=== PATIENT | male | born 1935 | race Caucasian/White ===

== ENCOUNTER 2024-08-06 12:05 | Emergency (ER) | payer MEDICARE, SELFPAY ==
[2024-08-06 12:07] VITALS: BP 146/60; PULSE 60; RESP 20; TEMP 36.9; O2SAT 97
[2024-08-06 12:08] VITALS: BMI 31.4
[2024-08-06 12:26] VITALS: PULSE 80; O2SAT 99; BMI 18.7
--- NOTE | 2024-08-06 12:39 | PC.NURSE ---
PT BIBA FROM HOME FOR GROUND LEVEL FALL. PER PT HE TRIPPED OVER HIS CAT. PT WAS SEEN YESTERDAY DUE TO DIZZINESS FROM NEW MUSCLE RELAXER. PER PT THE NEW MED CAUSES DIZZINESS. PT IS GCS 15 AT TIME OF ASSESSMENT, ABLE TO ANSWER QUESTIONS APPROPRIATELY. PTS NEIGHBOR CALLED EMS AFTER SHE HEARD LOUD THUMP. PT DENIES ANY BLOOD THINNERS OR LOC, BUT REPORTS HAVING 10/10 LOWER BACK PAIN. VSS ON TELE, CALL [facility] IN [place].
--- NOTE | 2024-08-06 12:56 | XR_ITS ---
Examination: CT brain head without contrast. 2-D sagittal coronal reconstructions Date and time of exam:August 06, 2024 at 1342 hours INDICATIONS: Patient fell today with injury to the head, patient is anticoagulated CTDI: vol (mGy):50.1 DLP: (mGycm):1042 Technique: Multiple CT axial sections of the brain have been obtained, 5 mm slice thickness. Contrast has not been administered. 2-D sagittal, coronal reconstructions have been obtained Low dose protocols were performed. One or more of the following dose reduction techniques were used; automated exposure control, adjustment of the mA and/or KV according to patient size, use of iterative reconstruction technique. Findings: No significant ventricular enlargement. Intra-axial or extra-axial hemorrhage density is not seen. No mass effect or midline shift Basal cisterns are not remarkable. Fourth ventricle is midline. Cranial vault intact. Impression: Negative for acute hemorrhage, mass effect or midline shift
--- NOTE | 2024-08-06 12:56 | XR_ITS ---
Examination: CT cervical spine without contrast 2-D sagittal reconstructions 2-D coronal reconstructions 3-D reconstructions. Exam date and time:August 06, 2024 1342 hours INDICATIONS: Patient fell today with into the neck, neck pain CTDI:vol (mGy) 8.55 DLP: (mGycm) 184 Technique: Multiple 2 mm axial sections of the cervical spine have been obtained. The coronal and sagittal reconstructions have been obtained. 3-D reconstructions have been obtained. Low dose protocols were performed. One or more of the following dose reduction techniques were used; automated exposure control, adjustment of the mA and/or KV according to patient size, use of iterative reconstruction technique. Findings: Axial sections demonstrate intact base of the skull. C1 exhibit satisfactory relationship to the odontoid. No acute cervical vertebral body fracture seen. Alignment posterior spinous processes satisfactory. Impression: No acute cervical fracture.
--- NOTE | 2024-08-06 13:19 | EDNOTE_ITS ---
ED Fall Injury RME/HPI General Chief Complaint: Fall Stated Complaint: BACK PAIN Time Seen by Provider: 08/06/24 12:44 Arrival date/time: 08/06/24 12:05 Limitations: no limitations RME / HPI RME / HPI Narrative: 88 year old male presents to the ED BIBA from home for evaluation after GLF occurring this morning. States he tripped over his cat while walking which caused him to fall backwards, hitting the back of his head on the space heater. Reports since fall has had pain to his neck that is worse with movements. Otherwise denies losing consciousness. No other injuries or complaints reported. Related Data Home Medications ?Medication ?Instructions ?Recorded ?Confirmed metoclopramide HCl 5 mg tablet 5 mg PO QDAY #0 tabs 02/01/15 08/06/23 (Reglan) atorvastatin 40 mg tablet 40 mg PO QDAY 05/23/23 08/06/23 gabapentin 300 mg capsule 300 mg PO BID 05/23/23 08/06/23 levothyroxine 75 mcg tablet 75 mcg PO QDAY 05/23/23 08/06/23 meclizine 25 mg tablet 25 mg PO TID PRN Dizziness Or 05/23/23 08/06/23 Vertigo tamsulosin 0.4 mg capsule 0.4 mg PO DAILY 08/03/23 08/06/23 Previous Rx's ?Medication ?Instructions ?Recorded clopidogrel 75 mg tablet (Plavix) 75 mg PO QDAY Blood Thinner 30 08/16/22 days #30 tabs Allergies Allergy/AdvReac Type Severity Reaction Status Date / Time No Known Allergies Allergy Verified 08/06/24 12:31 Review of Systems Review of Systems Narrative Review of Systems: GEN: No fever, no chills, no weight loss EYES: No discharge, no visual changes, no pain HEENT: No ear pain, no congestion, no sore throat PULM: No shortness of breath, no cough, no congestion CV: No chest pain, no dyspnea on exertion, no palpitations GI: No nausea, no vomiting, no diarrhea, no pain, no constipation : No frequency, no urgency, no dysuria MUSC/SKEL: +neck pain. No joint pain, no back pain SKIN: No rash NEURO: No weakness, no headache Past Medical History Past Medical History CARDIAC: Positive Cardiac Disorders, Hypercholesterolemia and Hypertension RESPIRATORY: Positive Bronchitis and Pneumonia GASTROINTESTINAL: Positive Gastrointestinal Disorders, Gall Bladder Disease and Hemorrhoids MUSCULOSKELETAL: Positive Musculoskeletal Disorders and Arthritis ENDOCRINE: Positive Diabetes Mellitus Type 2 OTHER HISTORY: Positive Blood Transfusions, Measles and Mumps Family History FAMILY HISTORY: Negative Family Psychiatric Problems, Family Respiratory Disorders, Family Cardiac Disorders, Family Gastrointestinal Problems, Family Cancer, Family Surgery or Family Anesthesia Reaction Surgical History SURGICAL: Positive Pacemaker Social History SMOKING STATUS: Never smoker ED Exam General Limitations: Present no limitations General appearance: Present alert and in no apparent distress Head Head exam: Present other (3cm contusion to right occipital scalp) Eye Eye exam: Present normal appearance, PERRL and EOMI ENT ENT exam: Present normal exam, normal oropharynx and mucous membranes moist Neck Neck exam: Present full ROM, trachea midline and other (Moderate midline cervical spine tenderness ) Chest Chest inspection: Present normal inspection and symmetric chest wall rise Respiratory Respiratory exam: Present normal lung sounds bilaterally Cardiovascular Cardiovascular exam: Present regular rate, normal rhythm and normal heart sounds Abdominal Exam Abdominal exam: Present soft and normal bowel sounds Extremities Exam Extremities exam: Present normal inspection and full ROM Back Exam Back exam: Present normal inspection and full ROM Neurological Exam Neurological exam: Present alert, oriented X3 and CN II-XII intact Psychiatric Psychiatric exam: Present normal affect and normal mood Skin Skin exam: Present warm, dry, intact and normal color Course Quality Measures none Orders Category Date Time Status CT cervical spine wo con Stat Exams 08/06/24 12:[address] head/brain wo con Stat Exams 08/06/24 12:56 Completed XR pelvis 1-2V Stat Exams 08/06/24 15:34 Completed Acetaminophen Tab [Tylenol ES Tab] Med 08/06/24 16:01 Discontinued 1,000 mg PO X1 ONE Ibuprofen Tab [Motrin Tab] Med 08/06/24 16:01 Discontinued 600 mg PO X1 ONE Reevaluation(s) Reevaluation #1: Patient reports having a muscle spasm in the right leg Time: 15:34 Reevaluation #2: We reviewed all the results, analysis, and treatment plans. Patient is amenable to discharge. Strict return precautions were outlined. Patient was discharged in stable condition. Time: 14:50 Vital Signs Vital signs: Vital Signs Temperature 98.4 F 08/06/24 12:07 Pulse Rate 60 08/06/24 12:07 Respiratory Rate 20 08/06/24 12:07 Blood Pressure 146/60 H 08/06/24 12:07 Pulse Oximetry (%) 97 08/06/24 12:07 Oxygen Delivery Method Room Air 08/06/24 12:07 Pulse ox is 97% on room air which is adequate. Fall MDM Narrative MDM Narrative:: Carie Kent am scribing for and in the presence of Dr. Butterfield. Patient data External records reviewed:: [facility] previous records (I reviewed admission from 08/02/2023 through 08/07/2023) and EMS form Clinical information provided by:: patient and EMS Social determinants that could affect healthcare access:: none Patient has the following chronic illnesses:: s/p pacemaker, hypertension, hyperlipidemia, hypothyroidism, diabetes How is presenting disease/condition affected by chronic disease/condition?: uneffected by Evaluation data The following diagnostics were reviewed and interpreted by me:: radiology exam(s) Lab and/or radiology exams considered but not ordered:: None Interpretation Summary: Ordering Physician: Isreal Butterfield MD Date of Service: 08/06/24 Procedure(s): CT cervical spine wo [facility] Accession Number(s): [id number] cc: Prieto Thompson MD; Aman Brar MD; Isreal Butterfield MD~ Examination: CT cervical spine without contrast 2-D sagittal reconstructions 2-D coronal reconstructions 3-D reconstructions. Exam date and time:August 06, 2024 1342 hours INDICATIONS: Patient fell today with into the neck, neck pain CTDI:vol (mGy) 8.55 DLP: (mGycm) 184 Technique: Multiple 2 mm axial sections of the cervical spine have been obtained. The coronal and sagittal reconstructions have been obtained. 3-D reconstructions have been obtained. Low dose protocols were performed. One or more of the following dose reduction techniques were used; automated exposure control, adjustment of the mA and/or KV according to patient size, use of iterative reconstruction technique. Findings: Axial sections demonstrate intact base of the skull. C1 exhibit satisfactory relationship to the odontoid. No acute cervical vertebral body fracture seen. Alignment posterior spinous processes satisfactory. Impression: No acute cervical fracture. Dictated By: Prieto Thompson MD Signed By: <Electronically signed by Prieto Thompson MD in [place]> 08/06/24 1416 Ordering Physician: Isreal Butterfield MD Date of Service: 08/06/24 Procedure(s): CT head/brain wo con Accession Number(s): [id number] cc: Prieto Thompson MD; Aman Brar MD; Isreal Butterfield MD~ Examination: CT brain head without contrast. 2-D sagittal coronal reconstructions Date and time of exam:August 06, 2024 at 1342 hours INDICATIONS: Patient fell today with injury to the head, patient is anticoagulated CTDI: vol (mGy):50.1 DLP: (mGycm):1042 Technique: Multiple CT axial sections of the brain have been obtained, 5 mm slice thickness. Contrast has not been administered. 2-D sagittal, coronal reconstructions have been obtained Low dose protocols were performed. One or more of the following dose reduction techniques were used; automated exposure control, adjustment of the mA and/or KV according to patient size, use of iterative reconstruction technique. Findings: No significant ventricular enlargement. Intra-axial or extra-axial hemorrhage density is not seen. No mass effect or midline shift Basal cisterns are not remarkable. Fourth ventricle is midline. Cranial vault intact. Impression: Negative for acute hemorrhage, mass effect or midline shift Dictated By: Prieto Thompson MD Signed By: <Electronically signed by Prieto Thompson MD in OV> 08/06/24 1400 Ordering Physician: Isreal Butterfield MD Date of Service: 08/06/24 Procedure(s): XR pelvis 1-2V Accession Number(s): [id number] cc: Prieto Thompson MD; Aman Brar MD; Isreal Butterfield MD~ Examination: AP pelvis single view Technique one AP portable supine pelvis single view Exam date and time: August 06, 2024 1544 hours INDICATIONS: Pelvic pain today. FINDINGS: Moderate narrowing hip joints Prominent osteopenia No hip or pelvic fracture IMPRESSION: Moderate bilateral hip osteoarthritis Dictated By: Prieto Thompson MD Signed By: <Electronically signed by Prieto Thompson MD in OV> 08/06/24 1550 Medications / Prescriptions Medications or Prescriptions considered but not ordered:: None Medication administrations:: Medication Administration History Discontinued Medications Acetaminophen (Acetaminophen 500 Mg Tablet) 1,000 mg PO X1 ONE Stop: 08/06/24 16:02 Ibuprofen (Ibuprofen Tab 600 Mg Tablet) 600 mg PO X1 ONE Stop: 08/06/24 16:02 See above Consultations Consultation(s) initiated? (list below): No Diagnosis Fall Differential Diagnosis: syncope, compression fracture and other (Cervical sprain, cervical fracture ) Most likely diagnosis given after review of the tests above:: Fall Admission Indicated Admission indicated?: not indicated Admission Request Was there a request for admission?: No Disposition Plan Disposition Plan: Discharge Discharge Attestation Discharge Attestation: The patient and all family members were given an opportunity to ask questions and understood the discharge instructions. Discharge instructions specifically effects, indications for sooner follow up or return to the emergency department, and the expected course of current diagnosis. Patient condition: Stable Discharge Plan Plan Patient Disposition: HOME (Self Care) Disposition Comment: Stable for discharge Patient condition on transfer: Stable Prescriptions/Referrals Prescriptions/Med Rec: No Action metoclopramide HCl [Reglan] 5 MG tablet 5 mg PO QDAY Qty: 0 clopidogrel [Plavix] 75 mg Tablet 75 mg PO QDAY 30 Days Qty: 30 2RF Rx Instructions: patient ran out of med atorvastatin 40 mg tablet 40 mg PO QDAY levothyroxine 75 mcg tablet 75 mcg PO QDAY Patient Comments: take 1 tablet by mouth once daily Rx Instructions: patient ran out of med meclizine 25 mg tablet 25 mg PO TID PRN (Reason: Dizziness Or Vertigo) Patient Comments: take 1 tablet by mouth three times a day if needed gabapentin 300 mg capsule 300 mg PO BID tamsulosin 0.4 mg capsule 0.4 mg PO DAILY Patient Comments: take 1 capsule by mouth once daily Rx Instructions: Pt ran out of med at home Referrals: Aman Brar MD [Primary Care Provider] - In 1 week Problem List Clinical Impression: Fall Patient/Caregiver Discharge Instructions Discharge Activity: activity as tolerated Education Materials: Preventing Falls Moving Safely ..., Exercises to Prevent Falls, Preventing Falls How to ... Additional Instructions: Please return to the emergency department for any worsening or any further medical problems You should follow-up with your primary care doctor within the next several days Your tests did not show any broken bones or bleeding inside the skull. But if you experience any worsening please return right away Print Language: Romansh Stand Alone Forms: Martha Award Info., Patient Portal Info Letter
[2024-08-06 14:43] VITALS: BP 157/62; PULSE 62; RESP 19; TEMP 36.3; O2SAT 97
--- NOTE | 2024-08-06 15:34 | XR_ITS ---
Examination: AP pelvis single view Technique one AP portable supine pelvis single view Exam date and time: August 06, 2024 1544 hours INDICATIONS: Pelvic pain today. FINDINGS: Moderate narrowing hip joints Prominent osteopenia No hip or pelvic fracture IMPRESSION: Moderate bilateral hip osteoarthritis
[2024-08-06 16:01] VITALS: BP 164/81; PULSE 60; RESP 20; TEMP 37; O2SAT 98
--- NOTE | 2024-08-06 16:22 | PC.NURSE ---
called sister at this time, no answer, pt does not have any other contacts to come get him, will attempt again
[2024-08-06] MEDS: IBUPROFEN TAB 600 MG TABLET PO (17:01)
[2024-08-06] MEDS: ACETAMINOPHEN 500 MG TABLET 1000 MG PO (17:02)
--- NOTE | 2024-08-06 17:07 | PC.NURSE ---
attempted to call sister again at this time, no answer. Pt unable to ambulate on his own.
--- NOTE | 2024-08-06 17:15 | PC.CC ---
Teena GUARDADO was consulted by KODY Rios to help located phone number for patient's caregiver Linda as patient is ready for discharge. IRAMW, found Lindas phone and made contact with her. She reports she was already on the way to the hospital and will be present shortly.
== END 2024-08-07 04:01 | disposition home or self-care (01) ==
PROVIDERS: Emergency Provider Emergency Medicine; PCP Family Medicine
DX: S00.03XA Contusion of scalp, initial encounter (principal); M54.2 Cervicalgia; M16.0 Bilateral primary osteoarthritis of hip; W01.198A Fall on same level from slipping, tripping and stumbling with subsequent striking against other object, initial encounter; Y93.01 Activity, walking, marching and hiking
CPT/HCPCS: 70450; 72125; 72170; 99284; A9270